=== PATIENT | male | born 1970 | race Caucasian/White ===

== ENCOUNTER 2017-12-14 13:01 | Day surgery (SDC) | payer OTHER ==
[2017-12-14] MEDS ORDERED: NS 1,000 ML IV SCH (13:15)
[2017-12-14] MEDS ORDERED: HEPARIN 10,000 UNIT/10 ML MDV (1,000 UNIT/ML) IVP PRN (13:15)
[2017-12-14] MEDS ORDERED: MIDAZOLAM 2 MG/2 ML VIAL IVP PRN (13:15)
[2017-12-14] MEDS ORDERED: FLUMAZENIL 0.5 MG/5 ML MDV IVP PRN (13:15)
[2017-12-14] MEDS ORDERED: NALOXONE HCL 0.4 MG/ML INJ IVP PRN (13:15)
[2017-12-14] MEDS ORDERED: fentaNYL 100 MCG/2 ML INJ IVP PRN (13:15)
[2017-12-14] MEDS ORDERED: GLUCAGON HCL 1 MG VIAL IVP PRN (13:15)
[2017-12-14] MEDS ORDERED: fentaNYL 100 MCG/2 ML INJ ONE ×2 (14:23→16:08)
[2017-12-14] MEDS ORDERED: MIDAZOLAM 2 MG/2 ML VIAL ONE ×2 (14:23→16:08)
[2017-12-14 14:34] LABS: INR 1.08 (0.83-1.16); PROTIME(PATIENT) 14.2 SEC (12.0-15.0)
--- NOTE | 2017-12-14 14:36 | PDRADPRE ---
Radiology History & Physical Indication for procedure: back pain Home medications: Methadone HCl 10 mg (*) 10 mg PO 12/13/17 [Last Taken Unknown] Ritalin 10mg (*) 10 mg PO 12/13/17 [Last Taken Unknown] traMADol 10 mg PO 12/13/17 [Last Taken Unknown] Allergies/Adverse Reactions: No Known Allergies Allergy (Unverified 12/13/17 13:39) Mental status: A&Ox3 Heart exam: regular rate and rhythm
--- NOTE | 2017-12-14 14:36 | PDPROPOC ---
Sedation Plan of Care ASA Classification: ASA 2 Mallampati Score: Class 2 Mallampati Reference Image:
[2017-12-14] MEDS ORDERED: LIDOCAINE 1% 300 MG/30 ML SDV ONE (15:44)
[2017-12-14] MEDS ORDERED: ONDANSETRON 4 MG/2 ML VIAL IVP PRN (16:36)
[2017-12-14] MEDS ORDERED: ACETAMINOPHEN 325 MG TAB PO PRN (16:36)
[2017-12-14] MEDS ORDERED: oxyCODONE IR 5 MG TAB PO ONE (17:30)
[2017-12-14 19:01] VITALS: BP 110/82
== END 2017-12-14 19:01 | disposition home or self-care (01) ==
LOC: FIMAGING 13:01
PROVIDERS: ATTEND Internal Medicine Infectious Disease
PROC: 0SB23ZX Excision of Lumbar Vertebral Disc, Percutaneous Approach, Diagnostic (ICD-10-PCS; principal; 2017-12-14 16:45)
PROC: 0QB03ZX Excision of Lumbar Vertebra, Percutaneous Approach, Diagnostic (ICD-10-PCS; principal; 2017-12-14 16:45)
DX: R93.7 Abnormal findings on diagnostic imaging of other parts of musculoskeletal system (principal); R50.9 Fever, unspecified; M54.9 Dorsalgia, unspecified
CPT/HCPCS: J2250; J3010